=== PATIENT | female | born 1975 | race Caucasian/White ===

== ENCOUNTER 2017-03-12 17:55 | Emergency (ER) ==
[2017-03-12 18:01] VITALS: BP 125/85; TEMP 98.4; BMI 32.5
--- NOTE | 2017-03-12 18:35 | ED.PDOC ---
General ED Provider: Dr. ANTONIO ROBERSON JR Chief Complaint: Sore Throat Stated Complaint: states she has been fighting sore throat and fever since october, will get better and then worse again. sore throat now for 2 days with swollen lymph nodes and fever, cough with yellow sputum, left ear pain. has had one round bactrim in october [ End ]98.4 74 20 96% 125/855/10[ End ]has not been treated trying natural cures finally took two bactrim last week, scheduled to see PMD Sunday, tired of being sick Time Seen by Physician: 18:34 Mode of Arrival: Walk-In Information Source: Patient Exam Limitations: No limitations Primary Care Provider: ADELITA SOTELO Nursing and Triage Documentation Reviewed and Agree: No Review of Systems - Review Of Systems Constitutional: Reports: Chills, Fever, Malaise, Weakness Eyes: Reports: No symptoms Ears, Nose, Mouth, Throat: Reports: Ear pain, Ear discharge, Nose pain, Nose discharge, Throat pain Respiratory: Reports: Cough Cardiac: Reports: No symptoms GI: Reports: No symptoms : Reports: No symptoms Musculoskeletal: Reports: No symptoms Skin: Reports: No symptoms Neurological: Reports: No symptoms Endocrine: Reports: No symptoms Hematologic/Lymphatic: Reports: No symptoms All Other Systems: Other Past Medical History - Past Medical History Endocrine: Reports: None Cardiovascular: Reports: None Respiratory: Reports: None Hematological: Reports: None Gastrointestinal: Reports: None Genitourinary: Reports: Kidney stones Neuro/Psych: Reports: Migraine (TUMORS BEHIND EYES THAT CAUSE MIGRAINES ), Anxiety, Depression Musculoskeletal: Reports: None Cancer: Reports: None Last Menstrual Period: now Other Pertinent Past Medical History: LYMES DX - Surgical History General Surgical History: Reports: Tubal ligation, Cholecystectomy, Tonsillectomy - Family History Family History: Reports: Unknown - Social History Smoking Status: Current every day smoker, Light tobacco smoker Hx Substance Use: No Alcohol Screening: None Physical Exam - Physical Exam Appearance: Well-appearing, Obese Ill-appearing: Mild Pain Distress: Mild Eyes: LALA, EOMI, Conjunctiva clear ENT: Ears normal, Nose normal, Oropharynx normal Neck: Supple Respiratory: Airway patent, Breath sounds clear, Breath sounds equal, Respirations nonlabored Cardiovascular: RRR, Pulses normal, No rub, No murmur GI/: Soft, Nontender, No masses, Bowel sounds normal, No Organomegaly Musculoskeletal: Normal strength, ROM intact, No edema, No calf tenderness Skin: Warm, Dry, Normal color Neurological: Sensation intact, Motor intact, Reflexes intact, Cranial nerves intact, Alert, Oriented Psychiatric: Affect appropriate, Mood appropriate Critical Care Note - Critical Care Note Total Time (mins): 0 Course - Course Vital Signs: Temp Pulse Resp BP Pulse Ox 03/12/17 17:56 98.4 F 74 20 125/85 96 Departure - Departure Time of Disposition: 18:44 Disposition: HOME SELF-CARE Discharge Problem: Sore throat symptom Instructions: Pharyngitis (ED) Condition: Good Pt referred to PMD for follow-up: Yes Additional Instructions: Augmentin antibiotic until gone Robitussin with codeine for cough follow up with PMD as scheduled discuss improvement Allergies/Adverse Reactions: Allergies codeine Adverse Reaction (Verified 03/12/17 18:01) erythromycin base [Erythromycin Base] Adverse Reaction (Verified 03/12/17 18:01) hydrocodone bitartrate [From Lortab] Adverse Reaction (Verified 03/12/17 18:01) yellow dye Adverse Reaction (Verified 03/12/17 18:01) Home Medications: Ambulatory Orders Pantoprazole Sodium [Protonix] 40 mg PO DAILY 01/20/16 Aspirin 81 mg PO DAILY 03/12/17
[2017-03-12 18:57] LABS: MONO INTERNAL QC INTERNAL QC VALID
== END 2017-03-12 19:18 | disposition home or self-care (01) ==
LOC: ED 17:55
DX: J02.9 Acute pharyngitis, unspecified (principal); F17.210 Nicotine dependence, cigarettes, uncomplicated
CPT/HCPCS: 36415; 86308; 87651; 87880; 99283

== ENCOUNTER 2017-03-20 07:35 | Outpatient (CLI) ==
[2017-03-20 07:59] LABS: BASOPHILS # (AUTO) 0.1 K/uL (0-0.2); BASOPHILS % (AUTO) 0.6 % (0.0-3.0); EOSINOPHILS # (AUTO) 0.4 K/ul (0.0-0.7); EOSINOPHILS % (AUTO) 4.1 % (0.0-7.0); HEMATOCRIT 40.2 % (37.0-47.0); HEMOGLOBIN 13.4 g/dl (12.0-16.0); IMMATURE GRANULOCYTE % (AUTO) 0.2 % (0.0-5.0); LYMPHOCYTES # (AUTO) 3.1 K/uL (0.60-3.4); LYMPHOCYTES % (AUTO) 34.2 (10.0-50.0); MEAN CORPUSCULAR HEMOGLOBIN 28.7 pg (27.0-31.0); MEAN CORPUSCULAR HGB CONC 33.3 (31.8-35.4); MEAN CORPUSCULAR VOLUME 86.1 fl (81.0-99.0); MONOCYTES # (AUTO) 0.6 K/uL (0.4-2.0); MONOCYTES % (AUTO) 6.8 (0-10); NEUTROPHILS # (AUTO) 4.9 K/ul (2.0-6.9); NEUTROPHILS % (AUTO) 54.1; PLATELET COUNT 359 10^3/uL (140-440); RED BLOOD COUNT 4.67 10^6/ul (4.20-5.40); WHITE BLOOD COUNT 8.97 K/ul (4.6-10.2)
[2017-03-20 08:04] LABS: BILIRUBIN,URINE Negative (NEGATIVE); KETONES,URINE Negative (NEGATIVE); LEUKOCYTE ESTERASE ,URINE Negative (NEGATIVE); NITRITE,URINE Negative (NEGATIVE); PH,URINE 5.5 (5-9); PROTEIN,URINE Negative (NEGATIVE); URINE, BLOOD 2+ (NEGATIVE)
[2017-03-20 08:06] LABS: ADD URINE MICROSCOPIC YES
[2017-03-20 08:17] LABS: H. PYLORI ANTIBODY NEGATIVE (NEGATIVE); H.PYLORI INTERNAL QC INTERNAL QC VALID
[2017-03-20 08:19] LABS: BACTERIA,URINE 1+ (NOT PRESENT)
[2017-03-20 08:44] LABS: ALBUMIN 3.6 g/dL (3.4-5.0); ALBUMIN/GLOBULIN RATIO 1.06; ANION GAP 12.1; BILIRUBIN,DIRECT 0.12 mg/dL (0.00-0.30); BILIRUBIN,TOTAL 0.26 mg/dL (0.00-1.20); BUN/CREATININE RATIO 18.98; CREATININE 0.79 mg/dL (0.60-1.30); PHOSPHORUS 3.4 mg/dL (2.5-4.9); POTASSIUM 4.1 mmol/L (3.5-5.10)
== END 2017-03-20 07:36 | disposition home or self-care (01) ==
LOC: LAB 07:35
PROVIDERS: ATTEND Nurse Practitioner
DX: F41.9 Anxiety disorder, unspecified (principal); G93.2 Benign intracranial hypertension; K92.1 Melena; R10.84 Generalized abdominal pain; R11.2 Nausea with vomiting, unspecified; R19.7 Diarrhea, unspecified
CPT/HCPCS: 36415; 80053; 81001; 82248; 84100; 84443; 85025; 86677; 87086

== ENCOUNTER 2017-09-08 00:24 | Emergency (ER) ==
[2017-09-08 00:29] VITALS: BP 120/82; TEMP 97.2; BMI 28.3
[2017-09-08] MEDS ORDERED: DILAUDID 1 MG/ML SYRINGE IM STA (00:44)
[2017-09-08] MEDS ORDERED: TORADOL IM STA (00:44)
[2017-09-08] MEDS ORDERED: PHENERGAN 25 MG/ML VIAL IM STA (00:44)
[2017-09-08 01:38] LABS: BASOPHILS # (AUTO) 0.1 K/uL (0-0.2); BASOPHILS % (AUTO) 0.5 % (0.0-3.0); EOSINOPHILS # (AUTO) 0.4 K/ul (0.0-0.7); EOSINOPHILS % (AUTO) 2.9 % (0.0-7.0); HEMATOCRIT 36.8 % (37.0-47.0); HEMOGLOBIN 12.9 g/dl (12.0-16.0); IMMATURE GRANULOCYTE % (AUTO) 0.3 % (0.0-5.0); LYMPHOCYTES # (AUTO) 4.9 K/uL (0.60-3.4); LYMPHOCYTES % (AUTO) 38.1 (10.0-50.0); MEAN CORPUSCULAR HEMOGLOBIN 29.7 pg (27.0-31.0); MEAN CORPUSCULAR HGB CONC 35.1 (31.8-35.4); MEAN CORPUSCULAR VOLUME 84.8 fl (81.0-99.0); MONOCYTES # (AUTO) 0.7 K/uL (0.4-2.0); MONOCYTES % (AUTO) 5.5 (0-10); NEUTROPHILS # (AUTO) 6.7 K/ul (2.0-6.9); NEUTROPHILS % (AUTO) 52.7; PLATELET COUNT 357 10^3/uL (140-440); RED BLOOD COUNT 4.34 10^6/ul (4.20-5.40)
--- NOTE | 2017-09-08 01:47 | CT ---
EXAM: CT sinus without intravenous contrast 09/08/2017. Sagittal and coronal reformatted images obt ained HISTORY: Sinus pain and fever COMPARISON: 07/13/2014, 09/08/2017 FINDINGS: The frontal, ethmoidal, sphenoidal and maxillary sinuses are normally aerated. The facial bones appear intact without evidence of fracture. Borderline orbital proptosis. This appears similar to previous examinations. There is no gross soft tissue abnormality. IMPRESSION: 1. No acute osseous abnormality of the facial bones. 2. Stable borderline orbital proptosis. 3. Normal pneumatization of the paranasal sinuses.
--- NOTE | 2017-09-08 01:51 | CT ---
EXAM: CT head without contrast 09/08/2017. Sagittal and coronal reformatted images obtained HISTORY: Headache COMPARISON: 02/13/2014, 07/13/2014 FINDINGS: There is no evidence of intracranial hemorrhage. The midline is maintained. There is no h ydrocephalus. Borderline orbital proptosis. This has been previously described and appears stable. Stable mild cerebellar tonsillar ectopia. Evaluation of the calvarium shows no fracture. The masto id air cells are normally pneumatized. IMPRESSION: 1. No intracranial hemorrhage. 2. Mild orbital proptosis appears stable. 3. Mild cerebellar tonsillar ectopia appears stable. 4. No acute intracranial process.
--- NOTE | 2017-09-08 01:52 | DI ---
EXAM: Chest, two views, 09/08/2017 HISTORY: 04/01/2014 COMPARISON: Fever FINDINGS / IMPRESSION: Cardiomediastinal countours appear stable. There is no focal pulmonary conso lidation. No pleural effusion or pneumothorax. No acute cardiopulmonary process.
[2017-09-08 01:59] LABS: ALBUMIN 3.7 g/dL (3.4-5.0); ALBUMIN/GLOBULIN RATIO 1.09; ANION GAP 13.5; BILIRUBIN,TOTAL 0.18 mg/dL (0.00-1.20); CALCIUM 9.2 mg/dL (8.2-10.2); CREATININE 0.75 mg/dL (0.60-1.30); POTASSIUM 3.5 mmol/L (3.5-5.10); TOTAL PROTEIN 7.1 g/dL (6.4-8.2)
[2017-09-08 02:05] LABS: ADD URINE MICROSCOPIC YES; BILIRUBIN,URINE Negative (NEGATIVE); KETONES,URINE Negative (NEGATIVE); LEUKOCYTE ESTERASE ,URINE Negative (NEGATIVE); NITRITE,URINE Negative (NEGATIVE); PH,URINE 6.5 (5-9); PROTEIN,URINE Negative (NEGATIVE); URINE, BLOOD Trace-lysed (NEGATIVE)
[2017-09-08 02:13] LABS: FLU INTERNAL QC INTERNAL QC VALID; RAPID FLU A NEGATIVE (NEGATIVE); RAPID FLU B NEGATIVE (NEGATIVE)
[2017-09-08 02:27] LABS: ESR INTERNAL QC INTERNAL QC VALID
--- NOTE | 2017-09-08 02:53 | ED.PDOC ---
General ED Provider: Dr. VINH MERINO-ER Chief Complaint: Headache Stated Complaint: mariela got one of my migraines=--but i think i might be coming down with something Time Seen by Physician: 00:30 Mode of Arrival: Walk-In Information Source: Patient Exam Limitations: No limitations Primary Care Provider: ADELITA SOTELO Nursing and Triage Documentation Reviewed and Agree: Yes Neurological Complaint Exam - Headache Complaint/Exam Onset: Gradual Duration: several hours Symptoms Are: Still present Timing: Constant Worst Headache Ever: No Initial Severity: Mild Current Severity: Moderate Location: Diffuse Character: Reports: Dull, Throbbing, Typical headache, Migraine Aggravating: Reports: Bright lights Alleviating: Reports: None Associated Signs and Symptoms: Reports: Nausea. Denies: Dizziness, Seizure, Vomiting, Sinus pressure, Fever, Neck pain, Neck stiffness, Decreased LOC, Visual changes Related History: Reports: Similar episode Related Surgical History: Reports: None SAH Risk Factors: Reports: None Meningitis Risk Factors: Reports: None SDH Risk Factors: Reports: None Temporal Arteritis Risk Factors: Reports: Female, Normal Head CT Within Last 12 Months: No Fundoscopic Exam: Present: Normal Findings Papilledema Present: No Temporal Artery Tenderness: Present: None Sinus Tenderness: Present: None TMJ Tenderness: Present: None Glascow Coma Scale (see protocol): 15 Meningeal Signs Positive: No Pain on Passive Flexion-Positive Kernig's: No ROM Limited In: No Limitiations Focal Weakness: Present: None Focal Sensory Loss: Present: None Gait: Normal Nystagmus Present: No Gag Reflex Present: Yes [id number]: Normal Findings Romberg Test Positive: No Babinski Sign: Negative Right, Negative Left Heel to Toe Normal: Yes Differential Diagnoses: Migraine Review of Systems - Review Of Systems Constitutional: Reports: No symptoms Eyes: Reports: No symptoms Ears, Nose, Mouth, Throat: Reports: No symptoms Respiratory: Reports: No symptoms Cardiac: Reports: No symptoms GI: Reports: Nausea : Reports: No symptoms Musculoskeletal: Reports: Muscle pain Skin: Reports: No symptoms Neurological: Reports: Headache Endocrine: Reports: No symptoms Hematologic/Lymphatic: Reports: No symptoms All Other Systems: Reviewed and Negative Past Medical History - Past Medical History Previously Healthy: Yes Endocrine: Reports: None Cardiovascular: Reports: None Respiratory: Reports: None Hematological: Reports: None Gastrointestinal: Reports: None Genitourinary: Reports: Kidney stones Neuro/Psych: Reports: Migraine (TUMORS BEHIND EYES THAT CAUSE MIGRAINES ), Anxiety, Depression Musculoskeletal: Reports: None Cancer: Reports: None Last Menstrual Period: CURRENT Other Pertinent Past Medical History: LYMES DX - Surgical History General Surgical History: Reports: Tubal ligation, Cholecystectomy, Tonsillectomy - Family History Family History: Reports: Unknown - Social History Smoking Status: Current every day smoker, Heavy tobacco smoker Hx Substance Use: No Alcohol Screening: None - Immunizations Tetanus Shot up to Date: Yes Physical Exam - Physical Exam Appearance: Well-appearing, No pain distress, Well-nourished Pain Distress: Moderate Eyes: LALA, EOMI, Conjunctiva clear ENT: Ears normal, Nose normal, Oropharynx normal Neck: Supple Respiratory: Airway patent, Breath sounds clear, Breath sounds equal, Respirations nonlabored Cardiovascular: RRR GI/: Soft, Nontender, No masses, Bowel sounds normal, No Organomegaly Musculoskeletal: Normal strength, ROM intact, No edema, No calf tenderness Skin: Warm Neurological: Alert, Oriented Psychiatric: Affect appropriate, Mood appropriate Interpretation - Radiology Interpretation Radiology Interpretation By: Radiologist Radiology Results: Negative Exam Interpreted: CT Scan Re-Evaluation - Re-Evaluation Time of Re-Evaluation: 02:54 Status: Improved Vital Signs Stable: Yes Pain Level: 0 Appearance: NAD Lungs: Clear Skin: Warm and Dry Neuro: Alert and Oriented X3 CV: RRR Critical Care Note - Critical Care Note Total Time (mins): 0 Course - Course Hematology/Chemistry: 09/08/17 01:30 09/08/17 01:30 Orders, Labs, Meds: Lab Review 09/08/17 09/08/17 09/08/17 00:40 00:48 01:30 WBC 12.80 H RBC 4.34 Hgb 12.9 Hct 36.8 L MCV 84.8 MCH 29.7 MCHC 35.1 RDW Coeff of Po 12.8 Plt Count 357 Immature Gran % (Auto) 0.3 Neut % (Auto) 52.7 Lymph % (Auto) 38.1 [place] % (Auto) 5.5 Eos % (Auto) 2.9 Baso % (Auto) 0.5 Immature Gran # (Auto) 0.0 Neut # 6.7 Lymph # 4.9 H [place] # 0.7 Eos # 0.4 Baso # 0.1 ESR Sodium Potassium Chloride Carbon Dioxide Anion Gap BUN Creatinine Estimated GFR (MDRD) BUN/Creatinine Ratio Glucose Calcium Total Bilirubin AST ALT Alkaline Phosphatase Total Protein Albumin Globulin Albumin/Globulin Ratio Urine Color Yellow Urine Clarity Clear Urine pH 6.5 Ur Specific [place] <=1.005 Urine Protein Negative Urine Glucose (UA) Negative Urine Ketones Negative Urine Blood Trace-lysed Urine Nitrite Negative Urine Bilirubin Negative Urine Urobilinogen 0.2 Ur Leukocyte Esterase Negative Urine Microscopic RBC 0-2 Ur Squamous Epith Cells Not present Influenza A (Rapid) Negative Influenza B (Rapid) Negative 09/08/17 09/08/17 01:30 01:30 WBC RBC Hgb Hct MCV MCH MCHC RDW Coeff of Po Plt Count Immature Gran % (Auto) Neut % (Auto) Lymph % (Auto) [place] % (Auto) Eos % (Auto) Baso % (Auto) Immature Gran # (Auto) Neut # Lymph # [place] # Eos # Baso # ESR 10 Sodium 140 Potassium 3.5 Chloride 107 Carbon Dioxide 23 Anion Gap 13.5 BUN 12 Creatinine 0.75 Estimated GFR (MDRD) 86.00 BUN/Creatinine Ratio 16.00 Glucose 94 Calcium 9.2 Total Bilirubin 0.18 AST 14 L ALT 9 L Alkaline Phosphatase 55 Total Protein 7.1 Albumin 3.7 Globulin 3.4 Albumin/Globulin Ratio 1.09 Urine Color Urine Clarity Urine pH Ur Specific [place] Urine Protein Urine Glucose (UA) Urine Ketones Urine Blood Urine Nitrite Urine Bilirubin Urine Urobilinogen Ur Leukocyte Esterase Urine Microscopic RBC Ur Squamous Epith Cells Influenza A (Rapid) Influenza B (Rapid) Orders Category Date Time Status BLOOD CULTURE (ED ONLY) Stat LAB 09/08/17 01:30 Received CBC W/ AUTO DIFF Stat LAB 09/08/17 01:30 Completed COMPREHENSIVE METABOLIC PANEL Stat LAB 09/08/17 01:30 Completed ESR Stat LAB 09/08/17 01:30 Completed MOLECULAR GROUP A STREP Stat LAB 09/08/17 00:48 Results RAPID FLU A/B Stat LAB 09/08/17 00:48 Completed STREP SCREEN Stat LAB 09/08/17 00:48 Results URINALYSIS C & S IF INDICATED Stat LAB 09/08/17 00:40 Completed Hydromorphone HCl [Dilaudid 1 mg/ml Syringe] MEDS 09/08/17 00:44 Discontinued 1 mg IM ONCE STA Ketorolac Tromethamine [Toradol] MEDS 09/08/17 00:44 Discontinued 60 mg IM ONCE STA Promethazine HCl [Phenergan 25 mg/ml Vial] MEDS 09/08/17 00:44 Discontinued 25 mg IM ONCE STA CT HEAD W/O CONTRAST Stat RADS 09/08/17 00:[address] SINUSES W/O CONTRAST Stat RADS 09/08/17 00:43 Completed CXR [CHEST, 2 VIEWS PA & LAT] Stat RADS 09/08/17 00:44 Completed Medications Discontinued Medications Generic Name Dose Route Start Last Admin Trade Name Geni PRN Reason Stop Dose Admin Hydromorphone HCl 1 mg 09/08/17 00:44 09/08/17 00:51 Dilaudid 1 Mg/Ml Syringe IM 09/08/17 00:45 1 mg ONCE STA Administration Ketorolac Tromethamine 60 mg 09/08/17 00:44 09/08/17 00:51 Toradol IM 09/08/17 00:45 60 mg ONCE STA Administration Promethazine HCl 25 mg 09/08/17 00:44 09/08/17 00:51 Phenergan 25 Mg/Ml Vial IM 09/08/17 00:45 25 mg ONCE STA Administration Hiesha has not evidence of meningitis--non meningeal signs Vital Signs: Temp Pulse Resp BP Pulse Ox 09/08/17 00:25 97.2 F L 61 20 120/82 98 Departure - Departure Time of Disposition: 02:55 Disposition: HOME SELF-CARE Discharge Problem: Migraine Qualifiers: Migraine type: unspecified Status migrainosus presence: without status migrainosus Intractability: not intractable Qualified Code(s): G43.909 - Migraine, unspecified, not intractable, without status migrainosus Instructions: Migraine Headache (ED) Condition: Good Pt referred to PMD for follow-up: Yes Additional Instructions: keep f/u with your neurologist Allergies/Adverse Reactions: Allergies codeine Adverse Reaction (Verified 03/12/17 18:01) erythromycin base [Erythromycin Base] Adverse Reaction (Verified 03/12/17 18:01) hydrocodone bitartrate [From Lortab] Adverse Reaction (Verified 03/12/17 18:01) yellow dye Adverse Reaction (Verified 03/12/17 18:01) Home Medications: Ambulatory Orders Pantoprazole Sodium [Protonix] 40 mg PO DAILY 01/20/16 Alprazolam [Xanax] 0.5 mg PO BID 09/08/17 Disposition Discussed With: Patient
[2017-09-08 05:23] LABS: ERYTHROCYTE SEDIMENTATION RATE 10 mm/hr (0-20)
== END 2017-09-08 03:00 | disposition home or self-care (01) ==
LOC: ED 00:24
DX: G43.909 Migraine, unspecified, not intractable, without status migrainosus (principal); F17.210 Nicotine dependence, cigarettes, uncomplicated
CPT/HCPCS: 36415; 80053; 81001; 85025; 85651; 87040; 87651; 87804; 87880; 96372; 99283

== ENCOUNTER 2018-08-04 21:43 | Emergency (ER) ==
[2018-08-04 22:17] VITALS: BP 126/81; TEMP 98.8; BMI 32.5
--- NOTE | 2018-08-04 22:18 | ED.PDOC ---
General ED Provider: Dr. VINH MERINO-ER Chief Complaint: Cough Stated Complaint: mariela been blowing stuff out of my nose and coughing Time Seen by Physician: 22:16 Mode of Arrival: Walk-In Information Source: Patient Exam Limitations: No limitations Primary Care Provider: ADELITA SOTELO Nursing and Triage Documentation Reviewed and Agree: Yes Does patient meet sepsis criteria?: No System Inflammatory Response Syndrome: Not Applicable Sepsis Protocol: For patient's 13 years and over: Temp is 96.8 and below OR 101 and greater Pulse >90 BPM Resp >20/minute Acutely Altered Mental Status Are patient's symptoms suggestive of a new infection, such as: -Pneumonia -Skin, Soft Tissue -Endocarditis -UTI -Bone, Joint Infection -Implantable Device -Acute Abdominal Infection -Wound Infection -Meningitis -Blood Stream Catheter Infection -Unknown Respiratory Complaint Exam - Respiratory Complaint/Exam Onset/Duration: 3 days Symptoms Are: Still present Initial Severity: Mild Current Severity: Mild Location: Nose, Chest Character: Reports: Productive cough Aggravating: Reports: URI Alleviating: Reports: None Associated Signs and Symptoms: Reports: Wheezing, URI, Nasal congestion, Hoarseness, Sinus discomfort. Denies: Rapid breathing, Dyspnea, Fever, Chills, Chest pain, Pleuritic chest pain, Hemoptysis, Dizziness, Calf pain, Calf swelling, Edema History of Healthcare-Acquired Pneumonia: No Review of Systems - Review Of Systems Constitutional: Reports: No symptoms Eyes: Reports: No symptoms Ears, Nose, Mouth, Throat: Reports: Ear pain, Nose discharge Respiratory: Reports: Cough, Wheezing Cardiac: Reports: No symptoms GI: Reports: No symptoms : Reports: No symptoms Musculoskeletal: Reports: No symptoms Skin: Reports: No symptoms Neurological: Reports: No symptoms Endocrine: Reports: No symptoms Hematologic/Lymphatic: Reports: No symptoms All Other Systems: Reviewed and Negative Past Medical History - Past Medical History Previously Healthy: Yes Endocrine: Reports: None Cardiovascular: Reports: None Respiratory: Reports: None Hematological: Reports: None Gastrointestinal: Reports: None Genitourinary: Reports: Kidney stones Neuro/Psych: Reports: Migraine (TUMORS BEHIND EYES THAT CAUSE MIGRAINES ), Anxiety, Depression Musculoskeletal: Reports: None Cancer: Reports: None Last Menstrual Period: 07/28/18 Other Pertinent Past Medical History: LYMES DX - Surgical History General Surgical History: Reports: Tubal ligation, Cholecystectomy, Tonsillectomy - Family History Family History: Reports: Unknown - Social History Smoking Status: Current every day smoker, Heavy tobacco smoker Hx Substance Use: No Alcohol Screening: None - Immunizations Tetanus Shot up to Date: Yes Physical Exam - Physical Exam Appearance: Well-appearing, No pain distress, Well-nourished Eyes: LALA, EOMI, Conjunctiva clear ENT: Rhinorrhea Neck: Supple Respiratory: Rhonchi, Wheezes Cardiovascular: RRR GI/: Soft Musculoskeletal: Normal strength Skin: Warm, Dry, Normal color Neurological: Sensation intact Psychiatric: Affect appropriate, Mood appropriate Critical Care Note - Critical Care Note Total Time (mins): 0 Course - Course Vital Signs: Temp Pulse Resp BP Pulse Ox 08/04/18 21:44 98.8 F 89 20 126/81 97 Departure - Departure Time of Disposition: 22:17 Disposition: HOME SELF-CARE Discharge Problem: Sinusitis Qualifiers: Sinusitis location: unspecified location Chronicity: acute Recurrence: not specified as recurrent Qualified Code(s): J01.90 - Acute sinusitis, unspecified Asthmatic bronchitis Qualifiers: Asthma severity: mild Asthma persistence: intermittent Asthma complication type : with acute exacerbation Qualified Code(s): J45.21 - Mild intermittent asthma with (acute) exacerbation Instructions: Acute Bronchitis (ED) Condition: Good Pt referred to PMD for follow-up: Yes IPMP verified?: Yes Additional Instructions: augmentin 875mg bid x 7days---prednisone 30mg x3 days then 20mg x 2 days then 10mg x 2 days--proair inhaler 2 pufs qid --avoid cig smoke--recheck with pcp in 48hrs Allergies/Adverse Reactions: Allergies codeine Adverse Reaction (Verified 08/04/18 21:57) erythromycin base [Erythromycin Base] Adverse Reaction (Verified 08/04/18 21:57) hydrocodone bitartrate [From Lortab] Adverse Reaction (Verified 08/04/18 21:57) yellow dye Adverse Reaction (Verified 08/04/18 21:57) Home Medications: Ambulatory Orders Pantoprazole Sodium [Protonix] 40 mg PO DAILY 01/20/16 Aspirin [Aspirin EC] 81 mg PO DAILY 08/04/18 Multivitamin with Folic Acid [One Daily Multivitamin Tablet] 400 mcg PO DAILY Disposition Discussed With: Patient
== END 2018-08-04 22:24 | disposition home or self-care (01) ==
LOC: ED 21:43
DX: J01.90 Acute sinusitis, unspecified (principal); J45.21 Mild intermittent asthma with (acute) exacerbation; F17.210 Nicotine dependence, cigarettes, uncomplicated
CPT/HCPCS: 99282

== ENCOUNTER 2019-06-07 20:22 | Emergency (ER) ==
[2019-06-07 20:47] VITALS: BP 122/69; TEMP 98.3; BMI 31.0
[2019-06-07] MEDS ORDERED: LIDOCAINE HCL 1% SDV SUBCUT STA (21:03)
--- NOTE | 2019-06-07 21:53 | ED.PDOC ---
General ED Provider: Dr. JAVIER CASTRO Chief Complaint: Psychiatric Complaint Stated Complaint: Patient is a 43 year female who comes to the ER by ambulance with suicidal gesture with cutting the left forearm with a kitchen Knief. She states that she has had a bad marraige and was mad at her resulting in her action. She states that now she does not feel suicidal. Had some bleeding on the left forearm that is controlled with compression Time Seen by Physician: 20:30 Mode of Arrival: Ambulance Information Source: Patient, EMT Nursing and Triage Documentation Reviewed and Agree: Yes Does patient meet sepsis criteria?: No System Inflammatory Response Syndrome: Not Applicable Sepsis Protocol: For patient's 13 years and over: Temp is 96.8 and below OR 101 and greater Pulse >90 BPM Resp >20/minute Acutely Altered Mental Status Are patient's symptoms suggestive of a new infection, such as: -Pneumonia -Skin, Soft Tissue -Endocarditis -UTI -Bone, Joint Infection -Implantable Device -Acute Abdominal Infection -Wound Infection -Meningitis -Blood Stream Catheter Infection -Unknown Psychological Complaint Exam - Psychiatric Complaint/Exam Patient Complains Of: Present: Depression, Suicidal gestures Onset/Duration: just prior to arrival Symptoms Are: Resolved Initial Severity: Severe Current Severity: None Character: Present: Depressed, Anxious, Frustrated Aggravating: Reports: Drug use (THC). Denies: Alcohol use Associated Signs And Symptoms: Denies: Hostile, Confused, Hallucinating, Paranoid behavior, Sleep disturbance, Appetite change Related History: Reports: Suicidal gestures Patient Accompanied By: Police, Friend Patient In Custody Of Police: No Social Withdrawal Present: No Social Isolation Present: No Prior Suicide Attempt: No Injury From Prior Suicide Attempt: No Related Surgical History: Reports: None Patient Uncooperative For Exam: No Mood: Present: Depressed, Angry, Anxious Appearance: Present: Clean Thought Process: Present: Logical Insight: Present: Good Memory: Intact Judgement: Normal Danger To Others: No Patient Medically Stable For: Psych evaluation Differential Diagnoses: Anxiety, Depression, Suicidal Gesture Review of Systems - Review Of Systems Constitutional: Reports: No symptoms Eyes: Reports: No symptoms Ears, Nose, Mouth, Throat: Reports: No symptoms Respiratory: Reports: No symptoms Cardiac: Reports: No symptoms GI: Reports: No symptoms : Reports: No symptoms Musculoskeletal: Reports: No symptoms Skin: Reports: Other (Left forearm laceration ) Neurological: Reports: Anxiety, Depressed, Emotional problems Endocrine: Reports: No symptoms Hematologic/Lymphatic: Reports: No symptoms All Other Systems: Reviewed and Negative Past Medical History - Past Medical History Previously Healthy: Yes Endocrine: Reports: None Cardiovascular: Reports: None Respiratory: Reports: None Hematological: Reports: None Gastrointestinal: Reports: None Genitourinary: Reports: Kidney stones Neuro/Psych: Reports: Migraine (TUMORS BEHIND EYES THAT CAUSE MIGRAINES ), Anxiety, Depression Musculoskeletal: Reports: None Cancer: Reports: None Last Menstrual Period: 05/19/19 Other Pertinent Past Medical History: LYMES DX - Surgical History General Surgical History: Reports: Tubal ligation, Cholecystectomy, Tonsillectomy - Family History Family History: Reports: Unknown - Social History Smoking Status: Current every day smoker, Heavy tobacco smoker Hx Substance Use: No (marijuana) Alcohol Screening: Occasionally - Immunizations Tetanus Shot up to Date: No Physical Exam - Physical Exam Appearance: Obese Neck: Supple Respiratory: Airway patent, Breath sounds clear, Breath sounds equal, Respirations nonlabored Cardiovascular: RRR, Pulses normal, No rub, No murmur Musculoskeletal: Normal strength, ROM intact, No edema, No calf tenderness Skin: Warm, Dry, Normal color Neurological: Alert, Oriented Psychiatric: Anxious, Depressed Procedures - Laceration/Wound Repair Left forearm Wound Description: Linear Wound Length (cm): 6 Wound Width: 1 Wound Depth: 0.5 Wound Explored: Clean Wound Irrigated: No Wound Prep: Hibiclens Anesthesia: Lidocaine (5 mls ) Wound Margins: Flaps aligned Wound Repaired With: Sutures Suture Size and Type: 4.0 Ethlone Number of Sutures: 24 (Running ) Layer Closure?: No Sterile Dressing Applied?: Yes Splint Applied?: No Sling Applied?: No Progress: Tolerated well Critical Care Note - Critical Care Note Total Time (mins): 0 Course - Course Hematology/Chemistry: 06/07/19 21:05 06/07/19 21:05 Orders, Labs, Meds: Lab Review 06/07/19 06/07/19 06/07/19 21:05 21:05 21:50 WBC 11.87 H RBC 4.49 Hgb 13.0 Hct 38.6 MCV 86.0 MCH 29.0 MCHC 33.7 RDW Coeff of Po 13.2 Plt Count 341 Immature Gran % (Auto) 0.3 Neut % (Auto) 72.7 Lymph % (Auto) 17.2 [place] % (Auto) 8.7 Eos % (Auto) 0.8 Baso % (Auto) 0.3 Immature Gran # (Auto) 0.0 Neut # (Auto) 8.6 H Lymph # (Auto) 2.0 [place] # (Auto) 1.0 Eos # (Auto) 0.1 Baso # (Auto) 0.0 Sodium 140.8 Potassium 3.88 Chloride 105.7 Carbon Dioxide 25.6 Anion Gap 13.38 BUN 8.8 Creatinine 0.75 Estimated GFR (MDRD) 85.00 BUN/Creatinine Ratio 11.73 Glucose 94.3 Calcium 8.96 Total Bilirubin 0.41 AST 18.7 ALT 13.4 Alkaline Phosphatase 50.4 Total Protein 7.58 Albumin 4.34 Globulin 3.24 Albumin/Globulin Ratio 1.33 Urine Color Urine Clarity Urine pH Ur Specific [place] Urine Protein Urine Glucose (UA) Urine Ketones Urine Blood Urine Nitrite Urine Bilirubin Urine Urobilinogen Ur Leukocyte Esterase Urine Microscopic RBC Urine Microscopic WBC Ur Squamous Epith Cells Hyaline Casts Urine Mucus Salicylate Level mg/dL < 1.00 Urine Opiates Screen Negative Ur Oxycodone Screen Negative Urine Methadone Screen Negative Ur Propoxyphene Screen Negative Acetaminophen < 10.0 L Ur Barbiturates Screen Negative U Tricyclic Antidepress Negative Ur Phencyclidine Scrn Negative Ur Amphetamine Screen Negative U Methamphetamines Scrn Negative U Benzodiazepines Scrn Negative Urine Cocaine Screen Negative U Cannabinoids Screen Positive Plasma/Serum Alcohol < 10.0 06/07/19 21:50 WBC RBC Hgb Hct MCV MCH MCHC RDW Coeff of Po Plt Count Immature Gran % (Auto) Neut % (Auto) Lymph % (Auto) [place] % (Auto) Eos % (Auto) Baso % (Auto) Immature Gran # (Auto) Neut # (Auto) Lymph # (Auto) [place] # (Auto) Eos # (Auto) Baso # (Auto) Sodium Potassium Chloride Carbon Dioxide Anion Gap BUN Creatinine Estimated GFR (MDRD) BUN/Creatinine Ratio Glucose Calcium Total Bilirubin AST ALT Alkaline Phosphatase Total Protein Albumin Globulin Albumin/Globulin Ratio Urine Color Yellow Urine Clarity Slightly Urine pH 6.0 Ur Specific [place] 1.025 Urine Protein 2+ Urine Glucose (UA) Negative Urine Ketones Negative Urine Blood 2+ Urine Nitrite Negative Urine Bilirubin Negative Urine Urobilinogen 0.2 Ur Leukocyte Esterase Negative Urine Microscopic RBC 5-10 Urine Microscopic WBC 2-5 Ur Squamous Epith Cells 2-5 Hyaline Casts 2-5 Urine Mucus 2+ Salicylate Level mg/dL Urine Opiates Screen Ur Oxycodone Screen Urine Methadone Screen Ur Propoxyphene Screen Acetaminophen Ur Barbiturates Screen U Tricyclic Antidepress Ur Phencyclidine Scrn Ur Amphetamine Screen U Methamphetamines Scrn U Benzodiazepines Scrn Urine Cocaine Screen U Cannabinoids Screen Plasma/Serum Alcohol Orders Category Date Time Status EKG-(ED ONLY) Stat CARDIO 06/07/19 20:26 Ordered ED BASS STRING WINDER APPLIED ONCE EMERGENCY 06/07/19 20:26 Active ACETAMINOPHEN Stat LAB 06/07/19 21:05 Completed BLOOD ALCOHOL Stat LAB 06/07/19 21:05 Completed CBC W/ AUTO DIFF Stat LAB 06/07/19 21:05 Completed COMPREHENSIVE METABOLIC PANEL Stat LAB 06/07/19 21:05 Completed DRUG SCREEN, URINE, RAPID Stat LAB 06/07/19 21:50 Completed SALICYLATE Stat LAB 06/07/19 21:05 Completed URINALYSIS C & S IF INDICATED Stat LAB 06/07/19 21:50 Completed Ibuprofen [Motrin] MEDS 06/07/19 22:20 Discontinued 600 mg PO ONCE STA Lidocaine HCl/Pf [Lidocaine HCl 1% Sdv] MEDS 06/07/19 21:03 Discontinued 5 ml SUBCUT ONCE STA Medications Discontinued Medications Generic Name Dose Route Start Last Admin Trade Name Geni CANDELARIO Reason Stop Dose Admin Ibuprofen 600 mg 06/07/19 22:20 06/07/19 22:23 Motrin PO 06/07/19 22:21 600 mg ONCE STA Administration Lidocaine HCl 5 ml 06/07/19 21:03 06/07/19 22:19 Lidocaine Hcl 1% Sdv SUBCUT 06/07/19 21:04 5 ml ONCE STA Administration Vital Signs: Temp Pulse Resp BP Pulse Ox 06/07/19 20:25 98.3 F 98 H 20 122/69 97 Departure - Departure Time of Disposition: 22:32 Disposition: HOME SELF-CARE Discharge Problem: Suicide gesture, Laceration of forearm without complication, Depression Instructions: Laceration (ED), Depression (ED), Suicide Prevention (ED) Condition: Stable Pt referred to PMD for follow-up: Yes IPMP verified?: No Additional Instructions: Follow up with PCP in 7-10 days to have sutures removed. Allergies/Adverse Reactions: Allergies codeine Adverse Reaction (Verified 07/20/19 20:47) erythromycin base [Erythromycin Base] Adverse Reaction (Verified 06/07/19 20:47) hydrocodone bitartrate [From Lortab] Adverse Reaction (Verified 06/07/19 20:47) yellow dye Adverse Reaction (Verified 06/07/19 20:47) Home Medications: Ambulatory Orders Aspirin [Aspirin EC] 81 mg PO DAILY 08/04/18 Disposition Discussed With: Patient, Family Discharge Problem: Suicide gesture Qualifiers: Encounter type: initial encounter Qualified Code(s): X83.8XXA - Intentional self-harm by other specified means, initial encounter Laceration of forearm without complication Qualifiers: Encounter type: initial encounter Laterality: left Qualified Code(s): S51.812A - Laceration without foreign body of left forearm, initial encounter Depression Qualifiers: Depression Type: major depressive disorder Major depression recurrence: recurrent Active/Remission status: currently active Major depression episode severity: moderate Qualified Code(s): F33.1 - Major depressive disorder, recurrent, moderate
[2019-06-07] MEDS ORDERED: MOTRIN PO STA (22:20)
== END 2019-06-07 22:45 | disposition home or self-care (01) ==
LOC: ED 20:22
DX: S51.812A Laceration without foreign body of left forearm, initial encounter (principal); F33.1 Major depressive disorder, recurrent, moderate; X78.1XXA Intentional self-harm by knife, initial encounter; F17.210 Nicotine dependence, cigarettes, uncomplicated
CPT/HCPCS: 36415; 80053; 80306; 80307; 81001; 85025; 93005; 93010; 96372; 99283

== ENCOUNTER 2019-06-13 18:26 | Emergency (ER) ==
[2019-06-13 18:26] VITALS: BMI 31.0
[2019-06-13 18:50] VITALS: BP 124/78; TEMP 97.8
[2019-06-13] MEDS ORDERED: DILAUDID 1 MG/ML SYRINGE IM STA (18:54)
[2019-06-13] MEDS ORDERED: TORADOL IM STA (18:54)
[2019-06-13] MEDS ORDERED: PHENERGAN 25 MG/ML VIAL IM STA (18:54)
--- NOTE | 2019-06-13 20:04 | CT ---
EXAM: CT lumbar spine without contrast HISTORY: Low back pain with radiculopathy TECHNIQUE: Multi-slice transaxial helical with coronal and sagittal reformatted views. COMPARISON: 07/23/2013 MRI lumbar spine FINDINGS: The visualized vertebral body heights appear maintained. Mild disc space narrowing at L5-S1 is seen. No significant listhesis or spondylolysis is seen. No evidence of acute displaced lumbar spine fra cture is seen. The visualized retroperitoneum appears grossly unremarkable. Segmental analysis: T12-L2: No significant central canal or neural foraminal stenosis. L2-L3: Minimal circumferential disc bulge is seen which does not significantly narrow the central can al. No significant neural foraminal stenosis is seen. L3-L4: Small circumferential disc bulge is seen which results in up to mild narrowing of the central canal. Minimal bilateral neural foraminal narrowing is seen. L4-L5: There is mild narrowing of the central canal secondary to circumferential disc bulge as well a s mild thickening of the ligamentum flavum. Mild bilateral neural foraminal narrowing is seen. L5-S1: No significant central canal or neural foraminal stenosis. IMPRESSION: 1. No acute osseous abnormality. 2. Minimal/mild multilevel lumbar disc disease with small disc bulges as detailed above. These resu lts in up to mild narrowing of central canal. 3. Mild bilateral neural foraminal narrowing at L4-L5.
--- NOTE | 2019-06-13 20:11 | ED.PDOC ---
General ED Provider: Dr. VINH MERINO-ER Chief Complaint: Back Pain Stated Complaint: my back hurts since i coughed Time Seen by Physician: 19:00 Mode of Arrival: Walk-In Information Source: Patient Exam Limitations: No limitations Nursing and Triage Documentation Reviewed and Agree: Yes Does patient meet sepsis criteria?: No System Inflammatory Response Syndrome: Not Applicable Sepsis Protocol: For patient's 13 years and over: Temp is 96.8 and below OR 101 and greater Pulse >90 BPM Resp >20/minute Acutely Altered Mental Status Are patient's symptoms suggestive of a new infection, such as: -Pneumonia -Skin, Soft Tissue -Endocarditis -UTI -Bone, Joint Infection -Implantable Device -Acute Abdominal Infection -Wound Infection -Meningitis -Blood Stream Catheter Infection -Unknown Musculoskeletal Complaint Exam - Back Pain Complaint/Exam Mechanism of Injury: Reports: No known trauma Onset/Duration: 24 hrs Symptoms Are: Still present Timing: Constant Initial Severity: Mild Current Severity: Moderate Location: Reports: Discrete Character: Reports: Dull, Aching, Spasmodic Aggravating: Reports: Movements, Lifting, Bending, Walking Associated Signs and Symptoms: Denies: Swelling, Redness, Bruising, Fever, Weakness, Numbness, Tingling, Abdominal pain, Flank pain, Bladder incontinence, Bowel incontinence, Weight loss, Pain with weight bearing Focal Tenderness: Yes Paraspinal Muscle Tenderness: Yes Paraspinal Muscle Spasm: Yes Scoliosis: No Lordosis: No Kyphosis: No SLR Test: Right Negative, Left Negative Hip Motion Testing Pain: Right Negative, Left Negative Focal Weakness: Present: None Focal Sensory Loss: Present: None Gait: Present: Abnormal Differential Diagnoses: Fracture, Herniated Disk Review of Systems - Review Of Systems Constitutional: Reports: No symptoms Eyes: Reports: No symptoms Ears, Nose, Mouth, Throat: Reports: No symptoms Respiratory: Reports: No symptoms Cardiac: Reports: No symptoms GI: Reports: No symptoms : Reports: No symptoms Musculoskeletal: Reports: Back pain Skin: Reports: No symptoms Neurological: Reports: No symptoms Endocrine: Reports: No symptoms Hematologic/Lymphatic: Reports: No symptoms All Other Systems: Reviewed and Negative Past Medical History - Past Medical History Previously Healthy: Yes Endocrine: Reports: None Cardiovascular: Reports: None Respiratory: Reports: None Hematological: Reports: None Gastrointestinal: Reports: None Genitourinary: Reports: Kidney stones Neuro/Psych: Reports: Migraine (TUMORS BEHIND EYES THAT CAUSE MIGRAINES ), Anxiety, Depression Musculoskeletal: Reports: None Cancer: Reports: None Last Menstrual Period: current Other Pertinent Past Medical History: LYMES DX - Surgical History General Surgical History: Reports: Tubal ligation, Cholecystectomy, Tonsillectomy - Family History Family History: Reports: Unknown - Social History Smoking Status: Current every day smoker, Heavy tobacco smoker Hx Substance Use: No Alcohol Screening: Occasionally - Immunizations Tetanus Shot up to Date: Yes Physical Exam - Physical Exam Appearance: Well-appearing, No pain distress, Well-nourished Pain Distress: Moderate Eyes: LALA ENT: Ears normal Neck: Supple Respiratory: Airway patent, Breath sounds clear, Breath sounds equal, Respirations nonlabored Cardiovascular: RRR, Pulses normal, No rub, No murmur GI/: Soft, Nontender, No masses, Bowel sounds normal, No Organomegaly Musculoskeletal: Limited ROM Skin: Warm Neurological: Sensation intact, Motor intact, Reflexes intact, Cranial nerves intact, Alert, Oriented Psychiatric: Affect appropriate, Mood appropriate Interpretation - Radiology Interpretation Radiology Interpretation By: Radiologist Radiology Results: Negative Exam Interpreted: CT Scan Critical Care Note - Critical Care Note Total Time (mins): 0 Course - Course Orders, Labs, Meds: Orders Category Date Time Status Hydromorphone HCl [Dilaudid 1 mg/ml Syringe] MEDS 06/13/19 18:54 Discontinued 1 mg IM ONCE STA Ketorolac Tromethamine [Toradol] MEDS 06/13/19 18:54 Discontinued 60 mg IM ONCE STA Promethazine HCl [Phenergan 25 mg/ml Vial] MEDS 06/13/19 18:54 Discontinued 25 mg IM ONCE STA CT LUMBAR SPINE W/O CONTRAST Stat RADS 06/13/19 18:55 Completed Medications Discontinued Medications Generic Name Dose Route Start Last Admin Trade Name Freq PRN Reason Stop Dose Admin Hydromorphone HCl 1 mg 06/13/19 18:54 06/13/19 19:04 Dilaudid 1 Mg/Ml Syringe IM 06/13/19 18:55 1 mg ONCE STA Administration Ketorolac Tromethamine 60 mg 06/13/19 18:54 06/13/19 19:03 Toradol IM 06/13/19 18:55 60 mg ONCE STA Administration Promethazine HCl 25 mg 06/13/19 18:54 06/13/19 19:04 Phenergan 25 Mg/Ml Vial IM 06/13/19 18:55 25 mg ONCE STA Administration Vital Signs: Temp Pulse Resp BP Pulse Ox 06/13/19 18:46 97.8 F 66 16 124/78 97 Departure - Departure Time of Disposition: 20:10 Disposition: HOME SELF-CARE Discharge Problem: Low back strain Instructions: Acute Low Back Pain (ED) Condition: Good Pt referred to PMD for follow-up: Yes IPMP verified?: No Additional Instructions: f/u wtih pcp Allergies/Adverse Reactions: Allergies codeine Adverse Reaction (Verified 06/13/19 18:51) erythromycin base [Erythromycin Base] Adverse Reaction (Verified 06/13/19 18:51) hydrocodone bitartrate [From Lortab] Adverse Reaction (Verified 06/13/19 18:51) yellow dye Adverse Reaction (Verified 06/13/19 18:51) Home Medications: Ambulatory Orders 1 [No Reported Medications] 06/13/19 Disposition Discussed With: Patient, Family
== END 2019-06-13 20:13 | disposition home or self-care (01) ==
LOC: ED 18:26
DX: S39.012A Strain of muscle, fascia and tendon of lower back, initial encounter (principal); X50.1XXA Overexertion from prolonged static or awkward postures, initial encounter; F17.210 Nicotine dependence, cigarettes, uncomplicated
CPT/HCPCS: 96372; 99282